=== PATIENT | female | born 1990 | race African-American/Black ===

== ENCOUNTER 2016-10-03 15:03 | Outpatient (CLI) | payer MEDICARE, OTHER ==
[2016-10-04 00:55] VITALS: BP 111/65
== END 2016-10-03 15:04 ==
LOC: POD 15:03
PROVIDERS: ATTEND Podiatrist
DX: B35.1 Tinea unguium (principal); M79.674 Pain in right toe(s); M79.675 Pain in left toe(s); E11.42 Type 2 diabetes mellitus with diabetic polyneuropathy
CPT/HCPCS: 11721; G0463

== ENCOUNTER 2016-10-03 20:56 | Emergency (ER) | payer MEDICARE, OTHER ==
[2016-10-03] MEDS ORDERED: LORATADINE/PSEUDOEPHEDRINE 1 EACH TAB.ER.12H PO ONE (22:13)
[2016-10-03] MEDS ORDERED: CEPHALEXIN 250 MG CAPSULE PO ONE (22:13)
--- NOTE | 2016-10-04 00:54 | ED Physician Documentation ---
Upper Respiratory Symptoms - HISTORIAN Historian: patient - HPI Stated Complaint: COUGH CONGESTION Chief Complaint: Cough/ Upper Respiratory Additional Information: x 5 days Onset: days ago (5) Duration: sudden-Onset Context: denies: recent foreign travel, insect bite(s), tick(s), recent chemotherapy, multiple patients, same sx Severity: moderate Associated Symptoms: sinus drainage, productive cough Worsened by Deep Breath: No Further Comments: no - ROS CONST/EYES: denies: weakness, eye redness, eye itching CVS/RESP: none LYMPH: denies: leg swelling, rash, swollen glands, ankle swelling GI/: none NEURO/PSYCH: denies: fainting, dizziness, confusion, anxiety, depression MS/SKIN: denies: joint pain, muscle aches, rash - PAST HX Lung Disease: none PE Risk Factors: hypertension Other History: diabetes Type 2, hypertension, pancreas disease, other ( hypothyroidism, gerd) Surgeries/Procedures: none Immunizations: referred to PCP Allergies/Adverse Reactions: Allergies Allergy/AdvReac Type Severity Reaction Status Date / Time Penicillins AdvReac Intermediate Swelling Verified 10/03/16 21:49 - SOCIAL HX Smoking History: non-smoker, greater than 1 pack/day Drug Use: none - FAMILY HX Family History: no significant history - VITAL SIGNS Vital Signs: Vital Signs Temp Pulse Resp BP Pulse Ox 97.7 F 81 18 98/64 100 10/03/16 20:57 10/03/16 20:57 10/03/16 20:57 10/03/16 20:57 10/03/16 20:57 - REVIEWED ASSESSMENTS Nursing Assessment Reviewed: No Vitals Reviewed: No Progress - Results/Orders Results/Orders: strep screen, flu a and b ordered - Progress Progress: pt. given 1000 mg keflex and claritin-D12 p.o. in er Critical Care Note - Critical Care Note Total Time (mins): 0 ED Results Lab/Radiology - Lab Results Lab Results: strep neg, flu a and b neg - Radiology Radiology Impressions: none ordered - Orders Orders: ED Orders Category Date Time Status GRP A STREP SCREEN Routine Lab 10/03/16 Ordered INFLUENZA A&B Routine Lab 10/03/16 21:23 Ordered Cephalexin [Keflex] Med 10/03/16 22:13 Discontinued 1,000 mg PO NOW ONE Loratadine/Pseudoephedrine [Claritin-D 12 Hour Tablet] Med 10/03/16 22:13 Discontinued 1 each PO NOW ONE Upper Respiratory Symptoms - EXAM General Appearance: mild distress EENT: eyes nml inspection, lids & conjunct. nml, PERRL, TM dullness (R), TM dullness (L), loss of TM landmarks (L), mucosal edema, pharyngeal erythema Neck: normal inspection, thyroid normal, supple Respiratory: no resp. distress, breath sounds nml, no pain on inspiration, speaks full sentences Abdomen: non-tender, no organomegaly, nml bowel sounds, no distention CVS: reg rate & rhythm, heart sounds normal, equal pulses, no murmur, no gallop , PMI nml Skin: color nml, no rash, warm,dry Extremities: non-tender, normal range of motion Neuro/Psych: oriented x3, neuro intact, mood/affect nml Discharge Clincal Impression: Upper respiratory tract infection Qualifiers: URI type: unspecified URI Qualified Code(s): J06.9 - Acute upper respiratory infection, unspecified Comments: discharged with scripts for Claritin-D 12 #14 1 p.o. bid, Keflex 500 mg #40 2 p.o. bid generic, no refill Condition: Stable Disposition: 01 HOME, SELF-CARE Decision to Admit: NO Decision Time: 22:40
[2016-10-04 00:55] VITALS: BP 111/65
== END 2016-10-03 22:50 | disposition home or self-care (01) ==
LOC: ED 20:56
DX: J06.9 Acute upper respiratory infection, unspecified (principal); F17.210 Nicotine dependence, cigarettes, uncomplicated
CPT/HCPCS: 87070; 87400; 87880

== ENCOUNTER 2016-10-27 14:17 | Outpatient (CLI) | payer MEDICARE, OTHER ==
[2016-10-04 00:55] VITALS: BP 111/65
[2016-10-27 15:05] LABS: BASOPHILS % 0.6 (0.0-1.5); EOSINOPHILS % 4.4 % (0.0-6.8); LYMPHOCYTES # 2.1 # k/uL (0.6-4.0); MEAN CORPUSCULAR HEMOGLOBIN 29.1 pg (28.0-34.0); MONOCYTES # 0.3 # k/uL (0.0-0.9); MONOCYTES % 5.1 % (0.0-11.0); NEUTROPHILS # 3.1 # k/uL (1.4-7.7)
[2016-10-27 23:21] LABS: SERUM IRON 82 ug/dL (37-145)
== END 2016-10-27 14:20 ==
LOC: LAB 14:17
PROVIDERS: ATTEND Family Medicine
DX: D64.9 Anemia, unspecified (principal); Z83.2 Family history of diseases of the blood and blood-forming organs and certain disorders involving the immune mechanism
CPT/HCPCS: 36415; 82728; 83540; 83550; 85025; 85660

== ENCOUNTER 2016-12-19 15:18 | Outpatient (CLI) | payer MEDICARE, OTHER ==
[2016-10-04 00:55] VITALS: BP 111/65
== END 2016-12-19 15:20 ==
LOC: POD 15:18
PROVIDERS: ATTEND Podiatrist
DX: B35.1 Tinea unguium (principal); M79.674 Pain in right toe(s); M79.675 Pain in left toe(s)
CPT/HCPCS: 11721; G0463

== ENCOUNTER 2017-02-03 18:35 | Emergency (ER) | payer MEDICARE, OTHER ==
[2017-02-03 18:50] VITALS: BP 102/61
[2017-02-03] MEDS ORDERED: traMADol HCL 50 MG TABLET PO ONE ×2 (19:21→19:22)
--- NOTE | 2017-02-03 19:37 | ED Physician Documentation ---
Sore Throat/Dental Pain - HISTORIAN Historian: patient - HPI Stated Complaint: Sore Throat/Ear Pain Chief Complaint: Dental Pain Additional Information: Pt is a 26 yo female that presents with right sided tooth pain and right ear pain. Also c/o sore throat. Tooth pain has been present for one month -pt reports history of multiple cavities and states she has a dental appointment on 02/05/17. States she has had ear pain for the past week and a sore throat for the past 4 days. Denies fever/chills, cough, SOB and chest pain. Denies exposure to strep. Has been taking Naproxen for pain without much relief. - ROS CONST: no problems CVS/RESP: none GI/: denies: nausea, vomiting NEURO/PSYCH: none - PAST HX Past History: other (multiple caries), dental surgery, gum disease Other History: denies: cardiac disease Allergies/Adverse Reactions: Allergies Allergy/AdvReac Type Severity Reaction Status Date / Time Penicillins AdvReac Severe Swelling Verified 02/03/17 18:50 - SOCIAL HX Smoking History: non-smoker - FAMILY HX Family History: No - VITAL SIGNS Vital Signs: Vital Signs Temp Pulse Resp BP Pulse Ox 98.1 F 94 H 18 102/61 99 02/03/17 18:46 02/03/17 18:46 02/03/17 18:46 02/03/17 18:46 02/03/17 18:46 - REVIEWED ASSESSMENTS Nursing Assessment Reviewed: Yes Vitals Reviewed: Yes Progress - Progress Progress: Discussed with patient that she does not need an antibiotic at this time, she just needs additional pain control and to keep her appointment with her dentist in two days. I believe her ear pain is referred from her teeth as there is no sign of infection. She voices understanding and is agreeable. ED Results Lab/Radiology - Orders Orders: ED Orders Category Date Time Status traMADol HCL [Ultram] Med 02/03/17 19:21 Once 50 mg PO NOW ONE traMADol HCL [Ultram] Med 02/03/17 19:22 Once 50 mg PO TAKE HOME ONE Dental Pain Physical Exam - EXAM General Appearance: no acute distress Head/Neck: trachea midline, thyroid nml, other. No: mandibular swelling (R), maxillary swelling (R) Mouth/Throat: pharynx nml, voice nml, no drooling, no air way problems, dental tenderness, other (Multiple fillings noted on the right upper and lower teeth. There is minimal erythema noted to the inside of the upper gum line near the back. This area is tender but no fluctuance or drainage is appreciated.). No: trismus, uvular shift, muffled voice Ear/Nose: other (right TM is slightly injected but no fluid noted behind TM. Left TM normal) Respiratory: no resp. distress, breath sounds nml CVS: reg. rate & rhythm, heart sounds nml Abdomen: soft, normal bowel sounds Extremities: non-tender Skin: warm/dry Neuro/Psych: No: weakness, numbness Discharge Clincal Impression: Pain, dental Forms: Work Excuse Referrals: Nancy Price MD [Primary Care Provider] - 2 Days Additional Instructions: Take medications as prescribed. Keep taking your Naproxen as directed. Keep your appointment with your dentist in two days. Return to the ED should your symptoms worsen or not improve. Condition: Good Disposition: 01 HOME, SELF-CARE Decision to Admit: NO Decision Time: 19:30
== END 2017-02-03 19:34 | disposition home or self-care (01) ==
LOC: ED 18:35
DX: K02.9 Dental caries, unspecified (principal)
CPT/HCPCS: 99282; 99283

== ENCOUNTER 2017-02-12 10:03 | Outpatient (CLI) | payer MEDICARE, OTHER ==
[2017-02-12 10:58] LABS: eGFR (African) > 60; eGFR (Non-African) > 60
--- NOTE | 2017-02-12 14:14 | Diagnostic Imaging Report ---
SHARDA COSTELLO [facility] [address] [facility] [address] [address] Report Submission Date: Feb 12, 2017 1:56:20 PM CDT Patient Study Name: TARSHA COKER Date: Feb 12, 2017 10:34:07 AM CDT Modality Type: CR Gender: F Description: LOWER EXTREMITY : 89 Institution: [facility] Physician: SHARDA COSTELLO Examination: Plain film ankle History: Injury Findings: 3 views of the ankle demonstrates normal cortical margins. No fracture or dislocation. Talar dome is intact. Unfused ossicle fibular tip: margins are smooth. Inferior calcaneal spur. No soft tissue swelling. No joint effusion. Impression: No acute fracture. Electronically signed on Feb 12, 2017 1:56:20 PM CDT by: Wilian CODY
== END 2017-02-12 10:15 ==
LOC: RAD 10:03
PROVIDERS: ATTEND Family Medicine
DX: E78.2 Mixed hyperlipidemia (principal); E11.9 Type 2 diabetes mellitus without complications; E03.9 Hypothyroidism, unspecified; S93.412A Sprain of calcaneofibular ligament of left ankle, initial encounter; X58.XXXA Exposure to other specified factors, initial encounter; Y93.9 Activity, unspecified; Y99.9 Unspecified external cause status
CPT/HCPCS: 36415; 73610; 80053; 80061; 83036; 84443

== ENCOUNTER 2017-02-18 16:53 | Outpatient (CLI) | payer MEDICARE, OTHER ==
--- NOTE | 2017-02-19 07:13 | Diagnostic Imaging Report ---
EMERSON MURPHY~ [facility] [address] [facility] [address] ~ ~ ~ ~ Report Submission Date: Feb 18, 2017 5:19:24 PM CDT Patient ~ Study Name: TARSHA COKER ~ Date: Feb 18, 2017 5:02:48 PM CDT ~ Modality Type: CR Gender: F ~ Description: LOWER EXTREMITY : 89 ~ Institution: [facility] Physician: EMERSON MURPHY ~ ~ ~ ~ Examination: Plain film knee History: Knee discomfort Findings:~2 views of the knee demonstrates normal cortical margins. No fracture. ~ No dislocation. No joint effusion. No soft tissue irregularity. Impression: No osseous abnormality ~ Electronically signed on Feb 18, 2017 5:19:24 PM CDT by: Wilian CODY
== END 2017-02-18 16:55 ==
LOC: RAD 16:53
PROVIDERS: ATTEND Physician Assistant
DX: M25.561 Pain in right knee (principal)
CPT/HCPCS: 73560

== ENCOUNTER 2017-03-24 13:38 | Outpatient (CLI) | payer MEDICARE, OTHER | END 2017-03-24 13:40 | LOC: POD 13:38 | PROVIDERS: ATTEND Podiatrist | DX: B35.1 Tinea unguium (principal); M79.674 Pain in right toe(s); M79.675 Pain in left toe(s) | CPT/HCPCS: 11721; G0463 ==